=== PATIENT | female | born 1965 ===

== ENCOUNTER 2017-02-03 19:18 | Emergency (ER) | payer OTHER ==
[2017-02-03 19:39] VITALS: TEMP 98.2; O2SAT 96
--- NOTE | 2017-02-03 19:46 | ED PDOC ---
Arrival/HPI - General Chief Complaint: Lower Extremity Problem/Injury Time Seen by Provider: 02/03/17 19:21 Historian: Patient - History of Present Illness Narrative History of Present Illness (Text): 02/03/17 19:44 51-year-old female presents today with right leg pain 1 month. Patient denies fevers or chills. Patient states she is currently on antibiotic. Patient states she's been having worsening pain over the past month with intermittent swelling and erythema. Patient states that the pain is greatest in the foot and ankle. Patient states she recently dropped a Gatorade bottle on her ankle. Pt states she had surgery to remove a lipoma in november. pt states since then she has been having issues with the leg. pt states pain has been worse over the past week. pt states she saw surgeon 3 days ago and he placed her on abx but didnt to any imaging. 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 - Anesthesia Hx Anesthesia: Yes Hx Anesthesia Reactions: No Hx Malignant Hyperthermia: No - Suicidal Assessment Feels Threatened In Home Enviroment: No Family/Social History - Physician Review Nursing Documentation Reviewed: Yes Family/Social History: Unknown Family HX Smoking Status: Never Smoked Hx Alcohol Use: No Hx Substance Use: No Allergies/Home Meds Allergies/Adverse Reactions: Allergies acetaminophen [From Percocet] Allergy (Verified 02/03/17 19:59) ANAPHYLAXIS hydrocodone [From Vicodin] Allergy (Verified 02/03/17 19:59) RASH oxycodone [From Percocet] Allergy (Verified 02/03/17 19:59) ANAPHYLAXIS Review of Systems - Review of Systems Constitutional: absent: Fatigue, Fevers Respiratory: absent: SOB, Cough Cardiovascular: absent: Chest Pain, Palpitations Gastrointestinal: absent: Abdominal Pain, Nausea, Vomiting Musculoskeletal: Arthralgias (right leg pain) Skin: absent: Rash, Pruritis Neurological: absent: Headache, Dizziness Psychiatric: absent: Anxiety, Depression Physical Exam Vital Signs Reviewed: Yes Vital Signs Temp Pulse Resp BP Pulse Ox 02/03/17 19:18 98.2 F 65 18 133/70 96 Temperature: Afebrile Blood Pressure: Normal Pulse: Regular Respiratory Rate: Normal Appearance: Positive for: Well-Appearing, Non-Toxic, Comfortable Pain Distress: None Mental Status: Positive for: Alert and Oriented X 3 - Systems Exam Head: Present: Atraumatic Mouth: Present: Moist Mucous Membranes Respiratory/Chest: Present: Clear to Auscultation Cardiovascular: Present: Regular Rate and Rhythm Upper Extremity: Present: Normal Inspection Lower Extremity: Present: NORMAL PULSES, Normal ROM, Tenderness (right leg; + healed scar along the medial aspect of the calf. no erythema; no calf tenderness. Right ankle; + edema and tenderness noted to both lateral and medial malleolus; sensation and distal pulses intact. cap refill <2. + edema and minimal erythema noted to the dorsal aspect of the foot. ), Swelling, Erythema, Neurovascularly Intact, Capillary Refill < 2 s. No: CALF TENDERNESS, Deformity, Temperature Abnormalties Neurological: Present: GCS=15, Speech Normal Skin: Present: Warm, Dry, Normal Color Psychiatric: Present: Alert, Oriented x 3 Medical Decision Making ED Course and Treatment: 02/03/17 19:48 51yr old female with right leg pain/swelling/erythema x 1 month. pt started abx 3 days ago. she believes the name is keflex 4 times daily. cbc: wnl cmp: glucose 131 duplex; right lower leg; NO DVT verbal report from [email or web address]. xray right foot; NO FRACTURE reviewed by dr. kingsley xray right ankle; NO FRACTURE reviewed by dr. kingsley. toradol given for pain. pt reassessment; pt feeling better after medications; jan wrap applied to right ankle. cane given for ambulation. discussed results in depth with patient/. advised f/u with fiberglass luggage molder/ orthopedist within the next 2 days. Advised follow-up with her surgeon. Advised follow-up with a vascular surgeon. Advised immediate return is symptoms worsen or persist or if new concerning symptoms develop. Advised patient to continue antibiotics as prescribed. Advised immediate return if symptoms worsen persist or if new concerning symptoms develop: High fever, increasing pain, increasing redness, increasing swelling. Patient verbalizes understanding of discharge instructions and need for immediate followup. all aspects of this case were discussed the attending of record. Impression: Leg pain, cellulitis Motrin every 6 hours as needed for pain continue antibiotic as prescribed. Use cane for ambulation, use Jan wrap Follow-up with the orthopedist/fiberglass luggage molder within the next 2 days Follow-up with the surgeon within the next 2 days Return immediately if symptoms worsen or persist or if new symptoms develop, high fevers, increasing pain, increasing redness, increasing swelling or if any other concerning symptoms develop - Lab Interpretations Lab Results: 02/03/17 20:15 02/03/17 20:15 Lab Results 02/03/17 20:15: WBC 6.8, RBC 4.66, Hgb 13.0, Hct 39.9, MCV 85.6, MCH 27.9, MCHC 32.6, RDW 13.6, Plt Count 205, MPV 11.0, Gran % 55.9, Lymph % (Auto) 25.5, Rabun % (Auto) 9.0 H, Eos % (Auto) 9.0 H, Baso % (Auto) 0.6, Gran # 3.80, Lymph # 1.7 , Rabun # 0.6, Eos # 0.6, Baso # 0.04 02/03/17 20:15: Sodium 141, Potassium 3.9, Chloride 106, Carbon Dioxide 25, Anion Gap 14, BUN 21, Creatinine 0.6, Est GFR ( Amer) > 60, Est GFR (Non- Af Amer) > 60, Random Glucose 131 H, Calcium 9.0, Total Bilirubin 0.8, AST 22, ALT 32, Alkaline Phosphatase 126, Total Protein 7.1, Albumin 3.8, Globulin 3.2, Albumin/Globulin Ratio 1.2 - RAD Interpretation Radiology Orders: 02/03/17 19:41 ANKLE RIGHT 3 VIEWS ROUTINE [RAD] Stat FOOT RIGHT 3 VIEWS ROUTINE [RAD] Stat DUPLEX LOWER EXTRM VEIN RIGHT [US] Stat - Medication Orders Current Medication Orders: Discontinued Medications Ketorolac Tromethamine (Toradol) 60 mg IM STAT STA Stop: 02/03/17 19:43 Last Admin: 02/03/17 20:57 Dose: 60 mg Disposition/Present on Arrival - Present on Arrival Any Indicators Present on Arrival: No History of DVT/PE: No History of Uncontrolled Diabetes: No Urinary Catheter: No History of Decub. Ulcer: No History Surgical Site Infection Following: None - Disposition Have Diagnosis and Disposition been Completed?: Yes Diagnosis: Leg pain, Cellulitis Disposition: HOME/ ROUTINE Disposition Time: 21:29 Patient Plan: Discharge Condition: GOOD Discharge Instructions (ExitCare): Cellulitis (ED), Leg Pain (ED) Additional Instructions: Motrin every 6 hours as needed for pain continue antibiotics as prescribed. Use cane for ambulation, use Jan wrap Follow-up with the orthopedist/fiberglass luggage molder within the next 2 days Follow-up with the surgeon within the next 2 days Return immediately if symptoms worsen or persist or if new symptoms develop, high fevers, increasing pain, increasing redness, increasing swelling or if any other concerning symptoms develop Prescriptions: Ibuprofen [Motrin] 600 mg PO Q6H PRN #20 tab PRN Reason: pain/fever reduction Referrals: Jim Goode MD [Primary Care Provider] - Follow up with primary Martine Puente MD [Staff Provider] - Follow up with primary Alvino Coreas DPM [Staff Provider] - Follow up with primary Adithya Sequeira MD [Staff Provider] - Follow up with primary Jaswant Kaur MD [Staff Provider] - Follow up with primary Forms: [employer] ([place]), WORK NOTE
[2017-02-03 20:23] LABS: BASO # 0.04 K/mm3 (0.0-2.0); BASO % 0.6 % (0.0-3.0); EOS # 0.6 (0.0-0.7); GRAN % 55.9 % (50.0-68.0); LYMPH # 1.7 (1.2-3.4); LYMPH % 25.5 % (22.0-35.0); MEAN CELL VOLUME 85.6 fL (80.0-105.0); MEAN CORPUSCULAR HEMOGLOBIN 27.9 pg (25.0-35.0); MEAN CORPUSCULAR HGB CONC 32.6 g/dl (31.0-37.0); MONO # 0.6 (0.1-0.6); PLATELET COUNT 205 10^3/uL (120.0-450.0); RBC 4.66 10^6/uL (3.5-6.1); RED CELL DISTRIBUTION WIDTH 13.6 % (11.5-14.5); WHITE BLOOD COUNT 6.8 10^3/ul (4.5-11.0)
[2017-02-03 20:36] LABS: ALB/GLOB RATIO 1.2 (1.1-1.8); ALBUMIN 3.8 g/dL (3.0-4.8); ALT/SGPT 32 U/L (7-56); AST/SGOT 22 U/L (15-39); BLOOD UREA NITROGEN 21 mg/dL (7-21); GFR AFRICAN-AMERICAN > 60; GFR NON-AFRICAN AMERICAN > 60
[2017-02-03 21:38] VITALS: BP 104/54; PULSE 52; RESP 16
--- NOTE | 2017-02-04 08:26 | US ---
PROCEDURE: Right lower extremity venous US HISTORY: Leg pain and swelling. Evaluate for DVT. PHYSICIAN(S): Feliciano Castellano M.D. TECHNIQUE: Duplex sonography and color-flow Doppler with graded compression were used to evaluate the deep venous system of the right lower extremity. FINDINGS: The visualized deep venous system of the right lower extremity is sonographically normal and compressible. Normal waveforms and augmentation are seen. There is no sonographic evidence for deep venous thrombosis in the visualized segments of the right lower extremity. IMPRESSION: 1. No sonographic evidence for deep venous thrombosis in the visualized segments of the right lower extremity.
--- NOTE | 2017-02-04 08:42 | RAD ---
PROCEDURE: Right Foot Radiographs. HISTORY: leg pain/ankle pain/foot pain COMPARISON: None. FINDINGS: BONES: No fracture. Small plantar calcaneal spur. JOINTS: Normal. SOFT TISSUES: Normal. OTHER FINDINGS: None. IMPRESSION: No acute fracture.
--- NOTE | 2017-02-04 08:42 | RAD ---
PROCEDURE: Right Ankle Radiographs. HISTORY: leg pain/ankle pain/foot pain COMPARISON: None FINDINGS: BONES: No acute fracture. Small plantar calcaneal spur. JOINTS: Normal. No osteoarthritis. Ankle mortise maintained. Talar dome intact SOFT TISSUES: Mild medial soft tissue swelling, nonspecific. OTHER FINDINGS: None. IMPRESSION: No acute fracture. Medial soft tissue swelling.
== END 2017-02-03 21:40 | disposition home or self-care (01) ==
LOC: ED 19:18
DX: L03.115 Cellulitis of right lower limb (principal); M79.604 Pain in right leg
CPT/HCPCS: 73610; 73630; 80053; 85025; 93971; 96372; 99283; J1885